=== PATIENT | female | born 1950 | race Caucasian/White ===

== ENCOUNTER 2018-07-16 11:24 | Emergency (ER) | payer MEDICARE ==
[2018-07-16] MEDS ORDERED: Ibuprofen 800 MG TAB ONE (11:51)
--- NOTE | 2018-07-16 12:22 | RAD ---
RIGHT WRIST FOUR VIEWS: Indication: Injury with pain. FINDINGS: Carpals appear normally aligned. No evidence of fracture identified. IMPRESSION: No evidence of acute fracture. POS: [facility]
== END 2018-07-16 12:20 | disposition home or self-care (01) ==
LOC: MADERS 11:24
DX: S63.501A Unspecified sprain of right wrist, initial encounter (principal); I10 Essential (primary) hypertension; Z79.899 Other long term (current) drug therapy; Z79.82 Long term (current) use of aspirin; W19.XXXA Unspecified fall, initial encounter
CPT/HCPCS: J7620

== ENCOUNTER 2018-10-05 07:24 | Emergency (ER) | payer MEDICARE ==
[2018-10-05] MEDS ORDERED: Loperamide HCl 2 MG CAP ONE (08:14)
[2018-10-05] MEDS ORDERED: Dicyclomine 10 MG CAP ONE (08:14)
== END 2018-10-05 09:30 | disposition home or self-care (01) ==
LOC: MADERS 07:24
DX: R19.7 Diarrhea, unspecified (principal); E78.5 Hyperlipidemia, unspecified; I10 Essential (primary) hypertension; Z79.899 Other long term (current) drug therapy; Z79.82 Long term (current) use of aspirin
CPT/HCPCS: 99284